=== PATIENT | female | born 1995 | race Caucasian/White ===

== ENCOUNTER 2018-10-22 13:15 | Outpatient (CLI) | payer MEDICAID ==
[~2018-10-22] VITALS: Ht 160 cm; Wt 65.3 kg
[2018-10-22] MEDS ORDERED: FOLI1TAB24 PO (13:33)
[2018-10-22] MEDS ORDERED: ASPI-586 PO (13:33)
[2018-10-22] MEDS ORDERED: PNV1TABL81 PO (13:33)
== END 2018-10-22 13:40 | disposition home or self-care (01) ==
LOC: PREOP 13:15
PROVIDERS: ATTEND Obstetrics & Gynecology
DX: Z01.818 Encounter for other preprocedural examination (principal)

== ENCOUNTER 2018-10-29 04:30 | Inpatient (IN) | payer OTHER, MEDICAID ==
[2018-10-29] VITALS (8 sets, daily range): BP systolic 98–111; BP diastolic 52–93
[~2018-10-29 04:30] MED LIST: ASPI-586 PO; FOLI1TAB24 PO; PNV1TABL81 PO
[2018-10-29] MEDS ORDERED: LACTATED RINGERS 2,000 ML IV ONE (05:08)
[2018-10-29] MEDS ORDERED: METOCLOPRAMIDE INJ 10 MG/2 ML (REGLAN) ONE (05:29)
[2018-10-29] MEDS ORDERED: CITRIC ACID/SOB CIT (BICITRA) 30 ML UDC ONE (05:29)
[2018-10-29] MEDS ORDERED: FAMOTIDINE 20MG/2ML IV (PEPCID) ONE (05:29)
[2018-10-29] MEDS ORDERED: ceFAZolin 2 GM/50 ML NS 50 ML ONE (05:29)
--- NOTE | 2018-10-29 06:30 | NUR ---
NOEMI VALDERRAMA presented to unit via ambulatory from ED, accompanied by s/o, with c/o BREECH PRESENTATION. NOEMI VALDERRAMA weighed, gowned, voided, and to bed. EFHM and TOCO applied, VS taken. NOEMI VALDERRAMA oriented to bed controls, call light, TV, heat, and A/C controls.
[2018-10-29] MEDS ORDERED: ceFAZolin 2 GM IV Premixed 50 ML IV SCH (06:38)
[2018-10-29] MEDS ORDERED: CATHETER FLUSH 10 ML SYR IV PRN (06:45)
[2018-10-29] MEDS ORDERED: CITRIC ACID/SOB CIT (BICITRA) 30 ML UDC PO ONE (06:45)
[2018-10-29] MEDS ORDERED: FAMOTIDINE 20MG/2ML IV (PEPCID) IV ONE (06:45)
[2018-10-29] MEDS ORDERED: METOCLOPRAMIDE INJ 10 MG/2 ML (REGLAN) IV ONE (06:45)
[2018-10-29 07:09] LABS: BASOPHILS % (AUTO) 0 % (0-10); EOSINOPHILS # (AUTO) 0.1 10^3/uL (0.0-0.3); EOSINOPHILS % (AUTO) 1 % (0-10); HEMATOCRIT 37 % (35-52); HEMOGLOBIN 13.3 G/DL (11.5-16.0); LYMPHOCYTES # (AUTO) 2.3 X 10^3 (1.0-4.0); LYMPHOCYTES % (AUTO) 22 % (12-44); MEAN CORPUSCULAR HEMOGLOBIN 33 PG (25-34); MEAN CORPUSCULAR HGB CONC 36 G/DL (32-36); MEAN CORPUSCULAR VOLUME 93 FL (80-99); MEAN PLATELET VOLUME 10.3 FL (7.4-10.4); MONOCYTES # (AUTO) 0.8 X 10^3 (0.0-1.0); MONOCYTES % (AUTO) 8 % (0-12); NEUTROPHILS # (AUTO) 7.1 X 10^3 (1.8-7.8); NEUTROPHILS % (AUTO) 69 % (42-75); PLATELET COUNT 212 10^3/uL (130-400); RED CELL DISTRIBUTION WIDTH 12.7 % (10.0-14.5); WHITE BLOOD COUNT 10.3 10^3/uL (4.3-11.0)
[2018-10-29] MEDS ORDERED: fentaNYL INJECTION 100 MCG/2 ML AMP ONE (07:12)
[2018-10-29] MEDS ORDERED: OXYTOCIN/NORMAL SALINE 1,000 ML IV ONE (07:13)
[2018-10-29] MEDS ORDERED: ROPIVACAINE 5MG/ML 30ML VIAL ONE (07:14)
--- NOTE | 2018-10-29 07:30 | History & Physical-OB/GYN ---
History of Present Illness History of Present Illness Reason for visit/HPI Ms. Donato is here for a scheduled secondary to Breech Presentation Date of Admission October 29, 2018 at 06:21 Date Seen by a Provider: October 29, 2018 Time Seen by a Provider: 07:15 I consulted on this patient on 10/29/18 07:25 Attending Physician Moisés Moreira DO Admitting Physician Moisés Moreira DO Consult Allergies and Home Medications Allergies Coded Allergies: No Known Drug Allergies (Unverified , 10/22/18) Home Medications Aspirin 81 Mg Tablet.dr, 81 MG PO DAILY, (Reported) Folic Acid 1 Mg Tablet, 1 MG PO DAILY, (Reported) Pnv No.122/Iron/Folic Acid 1 Each Tablet, 1 EACH PO DAILY, (Reported) Patient Home Medication List Home Medication List Reviewed: Yes Past Pvsbdml-Pppubw-Rrcxds Hx Patient Social History Marrital Status: Alcohol Use: Denies Use Recreational Drug Use: No Smoking Status: Never a Smoker Physical Abuse Screen: No Sexual Abuse: No Recent Foreign Travel: No Contact w/other who traveled: No Recent Hopitalizations: No Seasonal Allergies Seasonal Allergies: No Surgeries Yes (ACL repair) Respiratory No Cardiovascular No Neurological No Reproductive System Expected Date of Delivery: November 05, 2018 Genitourinary No Gastrointestinal No Musculoskeletal No Endocrine History of Endocrine Disorders: No HEENT History of HEENT Disorders: No Cancer No Psychosocial History of Psychiatric Problem: No Integumentary History of Skin or Integumenta: No Blood Transfusions History of Blood Disorders: No Family Medical History Family Hx: Patient reports no known family medical history. Review of Systems Constitutional: see HPI Physical Exam Physical Exam Vital Signs Capillary Refill : Labs Laboratory Tests 10/29/18 07:00: White Blood Count 10.3, Red Blood Count 4.03L, Hemoglobin 13.3, Hematocrit 37, Mean Corpuscular Volume 93, Mean Corpuscular Hemoglobin 33, Mean Corpuscular Hemoglobin Concent 36, Red Cell Distribution Width 12.7, Platelet Count 212, Mean Platelet Volume 10.3, Neutrophils (%) (Auto) 69, Lymphocytes (%) (Auto) 22, Monocytes (%) (Auto) 8, Eosinophils (%) (Auto) 1, Basophils (%) (Auto) 0, Neutrophils # (Auto) 7.1, Lymphocytes # (Auto) 2.3, Monocytes # (Auto) 0.8, Eosinophils # (Auto) 0.1, Basophils # (Auto) 0.0 General Appearance: No Apparent Distress, WD/WN Respiratory: Chest Non Tender, Lungs Clear, Normal Breath Sounds, Accessory Muscle Use Cardiovascular: Regular Rate, Rhythm, No Murmur Abdominal: normal bowel sounds, non tender, distended (Gravid) Uterus: Enlarged (Gravid) Extremity: Normal Inspection, Normal Range of Motion, Non Tender, No Calf Tenderness Assessment/Plan Assessment and Plan Assessment: Intrauterine at 39 weeks 2. Breech Presentation Plan: Ms. Donato is scheduled for a Primary Low Transverse . The procedure and its associated risks were reviewed. All questions were answered. Admission Diagnosis Intrauterine at 39 weeks 2. Breech Presentation Admission Status: Inpatient Order (span 2 midnights) Reason for Inpatient Admission: Scheduled surgery, Primary Low Transverse Clinical Quality Measures DVT/VTE Risk/Contraindication: Risk Factor Score Per Nursin RFS Level Per Nursing on Admit: 1=Low/No VTE PPMOISÉS DOMINGUEZ DO October 29, 2018 07:30
[2018-10-29] MEDS ORDERED: PHENYLEPHRINE 100 MCG/ML 10 ML (ANESTHESIA) SYR ONE (08:14)
[2018-10-29] MEDS ORDERED: ONDANSETRON 4 MG/2 ML (SDV) Z0FRAN ONE (08:20)
[2018-10-29] MEDS ORDERED: KETOROLAC 30 MG/ML VIAL ONE (08:35)
[2018-10-29] MEDS ORDERED: OXYTOCIN/NORMAL SALINE 500 ML IV SCH (08:52)
--- NOTE | 2018-10-29 08:52 | Operative Report ---
Operative Report Date of Procedure/Surgery October 29, 2018 Surgeon (s) YARY PHILLIPS DO Shot Hole Shooter (s): None Post-Operative Diagnosis Intrauterine at 39 weeks Breech Presentation Procedure Performed Primary Low Transverse Description of Procedure Anesthesia Type: Spinal Estimated blood loss (mL): 500 ml Specimen(s) collected/removed Placenta Description of the Procedure Ms. Donato was taken to the Operating Room with IV fluids running. Once in the OR, Spinal Anesthesia was administered without difficulty. She was then placed in the supine position with a leftward tilt. A West Catheter was inserted, she was then prepped and draped in the normal sterile fashion. A pfannesteil skin incision was made and carried down to the underlying layer of the fascia. The fascia was nicked in the midline and extended laterally. The fascia was elevated and the rectus muscle was dissected off sharply. The rectus muscle was in the midline. The parietal peritoneum was identified, grasped, entered sharply. This incision was extended superiorly and inferiorly with good visualization of the bladder. The vesicouterine peritoneum was identified, entered sharply and extended laterally. The bladder flap was created digitally. The bladder blade was inserted at that time. Utilizing a scalpel, a small incision was made in the lower uterine segment--this incision was extended laterally, manually. The fetus was delivered in standard breech fashion. Once the (female) was delivered, the mouth and nose were suctioned. The cord was doubly clamped and cut with the going immediately to the Pediatric Caregiver where NRP protocol was followed. Cord blood was obtained. The placenta was manually extracted. The uterus was exteriorized and cleared of all clots and debris. The uterine incision was closed with 0-Vicryl in a running locked manner. A second suture of the same type was placed as an imbricating layer. The vesicouterine peritoneum was closed with 3-0 Vicryl. The posterior aspect of the uterus was cleared of all clots and debris. The uterus was then returned to the pelvic cavity. The gutters were cleared of clots and debris. The parietal peritoneum was closed with 3-0 Vicryl. The subcutaneous tissues were approximated with 3-0 Plain Gut. The skin was closed with 4-0 Monocryl in a subcuticular manner. Sponge, needle and instrument counts were correct x 3. Both mom and stable. Mom was taken to the Recovery Room. Findings of the Procedure A healthy viable female weight 6 lbs 2 oz in the breech presentation. 7, 9. 19 inches in length. Allergies and Home Medications Allergies Coded Allergies: No Known Drug Allergies (Unverified , 10/22/18) Home Medications Aspirin 81 Mg Tablet.dr, 81 MG PO DAILY, (Reported) Folic Acid 1 Mg Tablet, 1 MG PO DAILY, (Reported) Pnv No.122/Iron/Folic Acid 1 Each Tablet, 1 EACH PO DAILY, (Reported) Patient Home Medication List Home Medication List Reviewed: Yes YARY PHILLIPS DO October 29, 2018 08:51
[2018-10-29] MEDS ORDERED: BISACODYL 10 MG SUPP (DULCOLAX) PR PRN (09:00)
[2018-10-29] MEDS ORDERED: TETANUS,DIPTH,PERTUSS P/F (BOOSTRIX) 0.5 ML VIAL IM SCH (09:00)
[2018-10-29] MEDS ORDERED: MEASLES,MUMPS,RUBELLA 1 EA INJ SC SCH (09:00)
[2018-10-29] MEDS ORDERED: ONDANSETRON 4 MG/2 ML (SDV) Z0FRAN IVP PRN (09:15)
[2018-10-29] MEDS ORDERED: HYDROmorphone 2 MG/ML VIAL (DILAUDID) IV ONE (09:15)
[2018-10-29] MEDS: KETOROLAC 30 MG/ML VIAL IV SCH ×3 (10:26→21:38)
[2018-10-29] MEDS: DOCUSATE SODIUM 100 MG (COLACE) CAP PO SCH ×2 (10:34→21:38)
[2018-10-29] MEDS: ACETAMINOPHEN 500 MG TAB (TYLENOL) PO SCH ×2 (11:41→18:06)
[2018-10-29] MEDS: METOCLOPRAMIDE 10 MG (REGLAN) TAB PO SCH ×2 (11:41→18:06)
[2018-10-29] MEDS: LACTATED RINGERS 1,000 ML IV PRN ×2 (11:49→21:50)
[2018-10-29] MEDS: CATHETER FLUSH 10 ML SYR IV SCH ×2 (14:00→21:38)
[2018-10-30] VITALS: BP 105/57
[2018-10-30] MEDS: METOCLOPRAMIDE 10 MG (REGLAN) TAB PO SCH ×2 (00:13→06:09)
[2018-10-30] MEDS: ACETAMINOPHEN 500 MG TAB (TYLENOL) PO SCH ×3 (00:13→13:15)
[2018-10-30] MEDS ORDERED: MILK OF MAGNESIA 400 MG/5 ML 30 ML UDC PO PRN (05:00)
[2018-10-30] MEDS: KETOROLAC 30 MG/ML VIAL IV SCH (05:06)
[2018-10-30 05:45] LABS: BASOPHILS % (AUTO) 0 % (0-10); EOSINOPHILS # (AUTO) 0.1 10^3/uL (0.0-0.3); EOSINOPHILS % (AUTO) 1 % (0-10); HEMATOCRIT 38 % (35-52); HEMOGLOBIN 13.2 G/DL (11.5-16.0); LYMPHOCYTES # (AUTO) 1.9 X 10^3 (1.0-4.0); LYMPHOCYTES % (AUTO) 13 % (12-44); MEAN CORPUSCULAR HEMOGLOBIN 33 PG (25-34); MEAN CORPUSCULAR HGB CONC 35 G/DL (32-36); MEAN CORPUSCULAR VOLUME 93 FL (80-99); MEAN PLATELET VOLUME 10.3 FL (7.4-10.4); MONOCYTES # (AUTO) 0.8 X 10^3 (0.0-1.0); MONOCYTES % (AUTO) 5 % (0-12); NEUTROPHILS # (AUTO) 12.1 X 10^3 (1.8-7.8); NEUTROPHILS % (AUTO) 81 % (42-75); PLATELET COUNT 201 10^3/uL (130-400); RED CELL DISTRIBUTION WIDTH 12.5 % (10.0-14.5); WHITE BLOOD COUNT 14.9 10^3/uL (4.3-11.0)
[2018-10-30] MEDS ORDERED: ceFAZolin 2 GM/50 ML NS 50 ML IV ONE (06:38)
--- NOTE | 2018-10-30 07:20 | NUR ---
Dr Moreira here to see pt. Orders rec'd for regular diet, saline lock, and D/C home later today
--- NOTE | 2018-10-30 07:42 | Discharge Summary ---
Diagnosis/Chief Complaint Date of Admission October 29, 2018 at 06:21 Date of Discharge October 30, 2018 Discharge Date: October 30, 2018 Discharge Time: 08:00 Admission Diagnosis Admission Diagnosis Intrauterine at 39 weeks 2. Breech Presentation Discharge Diagnosis Iintrauterine at 39 weeks 2. Breech Presentation Reason Hospital Visit Ms. Donato is here for a scheduled secondary to Breech Presentation Discharge Summary Hospital Course Was the Problem List Reviewed?: Yes Hospital Course Ms. Donato was admitted to the hospital for a scheduled Primary Low Transverse secondary to a Breech Presentation. The surgery was performed without complication. Postoperatively, she was given pain medication via anesthesia. Her day of surgery was uncomplicated. Postoperative Day #1 found Ms. Donato with excellent bowel sounds, tolerating a Regular Diet, ambulating without assist, controlling her pain with oral medications, and voiding freely. She states that she would like to go home. Her vital signs have remained stable throughout her hospitalization. We will discharge her to home with instructions, prescriptions, and a follow up appointment. Labs Laboratory Tests 10/29/18 07:00: Red Blood Count 4.03L 10/30/18 05:30: Red Blood Count 4.05L, White Blood Count 14.9H, Neutrophils (%) (Auto) 81H, Neutrophils # (Auto) 12.1H Procedures None. Discharge Physical Examination Allergies: Coded Allergies: No Known Drug Allergies (Unverified , 10/22/18) Vitals & I&Os Vital Signs Date Time Temp Pulse Resp B/P (MAP) Pulse Ox O2 Delivery O2 Flow Rate FiO2 10/30/18 00:00 98.4 64 16 105/57 (73) 96 Room Air General Appearance: Alert, Oriented X3, Cooperative HEENT: PERRLA, EOMI Respiratory: Clear to Auscultation, Normal Air Movement Cardiovascular: Regular Rate, No Murmurs Abdominal: Normal Bowel Sounds, Soft, Other (Mildly tender) Extremities: No Clubbing, No Cyanosis, No Edema Skin: No Rashes Neuro: Normal Gait, Normal Speech Psych/Mental Status: Mental Status NL Discussion & Recommendations Pelvic rest, no heavy lifting, no strenuous activities. Clean incision 3 x daily. Return to office in one week. Call with problems or questions. Discharge Home Medications Reviewed and agree with Discharge Medication list on patient's Discharge Instruction sheet Condition at Discharge Good and stable Instructions to Patient/Family Please see electronic discharge instructions given to patient. Clinical Quality Measures DVT/VTE Risk/Contraindication: Risk Factor Score Per Nursin RFS Level Per Nursing on Admit: 1=Low/No VTE PPX YARY PHILLIPS DO October 30, 2018 07:42
--- NOTE | 2018-10-30 07:45 | Discharge Inst-Women's Service ---
Discharge Inst-Women's Serv Depart Medication/Instructions New, Converted or Re-Newed RX: RX Given to Pt/Family Instructions Pelvic rest for 6 weeks. No strenuous activities. No heavy lifting. Return to office in one week. Call with problems or questions Final Diagnosis Intrauterine at 39 weeks 2. Breech Presentation Activity Activity: Activity as Tolerated Driving Instructions: No Driving for 1 Week NO SMOKING: NO SMOKING Nothing Inside Vagina: No Douching, No [place], No Tampons Diet Discharge Diet: No Restrictions Symptoms to Report to : Bleeding Excessive, Pain Increased, Fever Over 101 Degrees F, Vaginal Bleeding Increase, Vaginal Discharge Foul Skin/Wound Care Infection Signs and Symptoms: Increased Redness, Foul Odor of Wound, Increased Drainage, Temperature Above 101 F Bathing Instructions: YARY Baron DO October 30, 2018 07:44
[2018-10-30] MEDS ORDERED: DOCU100C37 PO (07:48)
[2018-10-30] MEDS ORDERED: OXC5T PO (07:48)
[2018-10-30] MEDS ORDERED: IBUP-1780 PO (07:48)
[2018-10-30] MEDS ORDERED: ACET-77 PO (07:48)
[2018-10-30] MEDS: DOCUSATE SODIUM 100 MG (COLACE) CAP PO SCH (08:13)
[2018-10-30 08:14] VITALS: BP 110/69
[2018-10-30] MEDS ORDERED: ALL PURPOSE NIPPLE OINTMENT 45 GM JAR TOP SCH (10:45)
--- NOTE | 2018-10-30 12:27 | Anesthesia-Regional Post-Op ---
Regional Patient Condition Mental Status: Alert, Oriented x3 Circulation: Same as Pre-Op Headache: Absent Sensation: Full Recovery Motor Block: Absent Post Op Complications Complications None Follow Up Care/Instructions Patient Instructions None needed. Anesthesia/Patient Condition Patient is doing well, no complaints, stable vital signs, no apparent adverse anesthesia problems. No complications reported per nursing. JASPER MOSELEY CRNA October 30, 2018 12:27
[2018-10-30] MEDS ORDERED: IBUPROFEN 800 MG (MOTRIN) TAB PO ONE (12:59)
--- NOTE | 2018-10-30 13:30 | NUR ---
Discharge instructions explained to pt with copy provided to pt along with prescriptions and vaccine card. Pt aware of follow up appt. Pt verbalizes understanding of teaching and denies questions or concerns. Pt signs to verify.
--- NOTE | 2018-10-30 15:05 | NUR ---
Pt taken off unit via wheelchair accompanied by Mar RN, and to private vehicle with all personal belongings. No s/s of distress noted.
[2018-10-30] MEDS ORDERED: IBUPROFEN 800 MG (MOTRIN) TAB PO SCH (18:00)
== END 2018-10-30 15:05 | disposition home or self-care (01) | DRG 788 ==
LOC: LDRP 06:21
PROVIDERS: ADMIT Obstetrics & Gynecology; ATTEND Obstetrics & Gynecology
PROC: 10D00Z1 Extraction of Products of Conception, Low, Open Approach (ICD-10-PCS; principal; 2018-10-29 07:47)
DX: O32.1XX0 Maternal care for breech presentation, not applicable or unspecified (principal); Z3A.39 39 weeks gestation of pregnancy; Z37.0 Single live birth
CPT/HCPCS: 36415; 85025; 86850; 86900; 86901; 90715

== ENCOUNTER → 2019-12-03 | Outpatient (CLI) | payer OTHER ==
[~2019-12-03] MED LIST changes: +ACET-78 PO; +DOCU100C37 PO; +IBUP-1780 PO; +OXC5T PO
== END ==
LOC: LAB FS 11:52
PROVIDERS: ATTEND Obstetrics & Gynecology
DX: N91.2 Amenorrhea, unspecified (principal)
CPT/HCPCS: 36415; 84702

== ENCOUNTER → 2020-05-19 | Outpatient (CLI) | payer OTHER | LOC: LAB FS 09:00 | PROVIDERS: ATTEND Family Medicine | DX: Z34.90 Encounter for supervision of normal pregnancy, unspecified, unspecified trimester (principal); Z3A.00 Weeks of gestation of pregnancy not specified | CPT/HCPCS: 36415; 82950; 86780 ==

== ENCOUNTER 2020-07-25 06:41 | Inpatient (IN) | payer OTHER, MEDICAID ==
[~2020-07-25] VITALS: Ht 63 cm; Wt 67.2 kg
[2020-07-25] VITALS (12 sets, daily range): BP systolic 106–134; BP diastolic 62–87
[~2020-07-25 06:41] MED LIST changes: -FOLI1TAB24 PO; +FOLI1TAB33 PO
[2020-07-25] MEDS ORDERED: ceFAZolin INJECTION 1,000 MG in WATER (STERILE) FOR INJECTION 10 ML IV ONE (08:15)
[2020-07-25] MEDS ORDERED: CATHETER FLUSH 10 ML SYR IV PRN (08:30)
[2020-07-25] MEDS ORDERED: CITRIC ACID/SOB CIT (BICITRA) 30 ML UDC PO ONE (08:30)
[2020-07-25] MEDS ORDERED: FAMOTIDINE 20MG/2ML IV (PEPCID) IV ONE (08:30)
[2020-07-25] MEDS ORDERED: METOCLOPRAMIDE INJ 10 MG/2 ML (REGLAN) IV ONE (08:30)
[2020-07-25] MEDS ORDERED: LACTATED RINGERS 1,000 ML IV PRN (08:30)
[2020-07-25] MEDS ORDERED: fentaNYL INJECTION 100 MCG/2 ML AMP ONE (08:35)
[2020-07-25] MEDS ORDERED: OXYTOCIN PRE-MIX DRIP 1,000 ML IV ONE (08:35)
[2020-07-25] MEDS ORDERED: OXYTOCIN PRE-MIX DRIP 500 ML IV ONE (08:36)
[2020-07-25] MEDS ORDERED: ROPIVACAINE 5MG/ML 30ML VIAL ONE (08:38)
[2020-07-25] MEDS: LACTATED RINGERS 1,000 ML IV PRN ×2 (08:39→09:11)
[2020-07-25] MEDS ORDERED: ONDANSETRON 4 MG/2 ML (SDV) Z0FRAN ONE (08:47)
[2020-07-25 08:50] LABS: BASOPHILS % (AUTO) 0 % (0-10); EOSINOPHILS % (AUTO) 0 % (0-10); HEMATOCRIT 38 % (35-52); HEMOGLOBIN 12.9 g/dL (11.5-16.0); LYMPHOCYTES # (AUTO) 1.9 10^3/uL (1.0-4.0); LYMPHOCYTES % (AUTO) 18 % (12-44); MEAN CORPUSCULAR HEMOGLOBIN 32 pg (25-34); MEAN CORPUSCULAR HGB CONC 34 g/dL (32-36); MEAN CORPUSCULAR VOLUME 95 fL (80-99); MEAN PLATELET VOLUME 10.7 fL (9.0-12.2); MONOCYTES # (AUTO) 0.6 10^3/uL (0.0-1.0); MONOCYTES % (AUTO) 6 % (0-12); NEUTROPHILS # (AUTO) 7.9 10^3/uL (1.8-7.8); NEUTROPHILS % (AUTO) 75 % (42-75); PLATELET COUNT 216 10^3/uL (130-400); WHITE BLOOD COUNT 10.6 10^3/uL (4.3-11.0)
[2020-07-25] MEDS ORDERED: ONDANSETRON 4 MG/2 ML (SDV) Z0FRAN IVP NR (09:00)
--- NOTE | 2020-07-25 09:13 | History & Physical-OB ---
OB - Chief Complaint & HPI Date/Time Date of Admission: Date of Admission: 07/25/2020 Date seen by a Provider: Jul 25, 2020 Time Seen by a Provider: 08:55 Chief Complaint/History OB-Reason for Admission/Chief: Section Hx : 3 Hx Para: 2 Expected Date of Delivery: Aug 05, 2020 Gestational Age in Weeks: 38 Gestational Age in Days: 3 Indication for : desires repeat , malpresentation Admission Nurse Assessment Rev: Yes History of Labs O pos Antibody neg RI RPR NR HBsAg NR HIV NR GC neg GBS neg Allergies and Home Medications Allergies Coded Allergies: No Known Drug Allergies (Unverified , 10/22/18) Home Medications Folic Acid 1 Mg Tablet, 1 MG PO DAILY, (Reported) Pnv No.122/Iron/Folic Acid 1 Each Tablet, 1 EACH PO DAILY, (Reported) Patient Home Medication List Home Medication List Reviewed: Yes OB - History Hx of Present Care: Yes Ultrasounds: Normal mid trimester US Obstetrical Complications: None Medical Complications: None Obstetrical History Hx : 3 Hx Para: 2 Patient Past Medical History n/a Social History/Family History Alcohol Use: Denies Use Recreational Drug Use: No Immunizations Date of Influenza Vaccine: Mar 24, 2020 OB - Admission Exam Physical Exam Vitals: Vital Signs 07/25/20 06:55 B/P (MAP) 125/87 (100) HEENT: NCAT Heart: Rhythm Normal Lungs: Clear Abdomen: Gravid Extremities: Normal Reflexes: Normal Cervical Dilatation: 2cm Effacement: 50% Station: -2 Membranes: Intact Amniotic Fluid: Clear Heart Rate: 130's Accelerations: Accelerations Present Decelerations: No Decelerations Short Term Variability: Present Intermediate Variability: Average (6-25) Contractions on Admission: < 5 Minutes Apart Intensity: Firm Labs Laboratory Tests Test 07/25/20 08:40 Range/Units OB - Assessment/Plan/Diagnosis Assessment Assessment: active labor, section Admission Dx 25 yo @ 38.3 weeks Previous Breech presentation GBS neg Admission Status: Inpatient Order (span 2 midnights) Reason for Inpatient Admission: Repeat Plan Plan: Section NICANOR WILSON DO Jul 25, 2020 09:13
[2020-07-25] MEDS ORDERED: TETANUS,DIPTH,PERTUSS P/F (BOOSTRIX) 0.5 ML VIAL IM SCH (09:15)
[2020-07-25] MEDS ORDERED: ONDANSETRON 4 MG/2 ML (SDV) Z0FRAN IVP PRN (09:15)
[2020-07-25] MEDS ORDERED: MEASLES,MUMPS,RUBELLA 1 EA INJ SC SCH (09:15)
[2020-07-25] MEDS ORDERED: OXYTOCIN PRE-MIX DRIP 500 ML IV SCH (09:15)
--- NOTE | 2020-07-25 09:17 | Discharge Inst-Women's Service ---
Discharge Inst-Women's Serv Depart Medication/Instructions New, Converted or Re-Newed RX: RX on Chart Final Diagnosis POD 2 RLTCS Problems Reviewed?: Yes Consults/Follow Up Additional Follow Up: Yes Orders/Referrals Dr. Regalado in 7-10 days and in 6 weeks Activity Activity: Activity as Tolerated Driving Instructions: No Driving for 1 Week NO SMOKING: NO SMOKING Nothing Inside Vagina: No Douching, No [place], No Tampons Diet Discharge Diet: No Restrictions Symptoms to Report to : Bleeding Excessive, Pain Increased, Fever Over 101 Degrees F, Vaginal Bleeding Increase, Questions/Concerns For Any Problems or Questions: Contact Your Physician Skin/Wound Care Infection Signs and Symptoms: Increased Redness, Foul Odor of Wound, Increased Drainage, Skin Itchy or Has a Rash, Increased Swelling, Temperature Above 101 F Operative Area Clean and Dry: Keep Incision Clean/Dry Stitches/Jong/Dermabond: Dermabond, Care of Stitches Bathing Instructions: NICANOR Thorpe DO Jul 25, 2020 09:17
[2020-07-25] MEDS ORDERED: DCS100C PO (09:18)
[2020-07-25] MEDS ORDERED: ACHD5005 PO (09:18)
[2020-07-25] MEDS ORDERED: IBUP-844 PO (09:18)
[2020-07-25] MEDS ORDERED: KETOROLAC 30 MG/ML VIAL ONE (09:51)
[2020-07-25] MEDS ORDERED: ASPI-479 PO (13:07)
[2020-07-25] MEDS ORDERED: CATHETER FLUSH 10 ML SYR IV SCH (14:00)
[2020-07-25] MEDS: HYDROcodone/APAP 5 MG/325 MG (LORTAB) TAB PO PRN ×2 (14:14→20:13)
--- NOTE | 2020-07-25 14:43 | OPERATIVE REPORT ---
DATE OF SERVICE: PREOPERATIVE DIAGNOSES: 1. A 25-year-old G3, P2 at 38 weeks and 3 days gestation. 2. Previous section. 3. Breech presentation. POSTOPERATIVE DIAGNOSES: 1. A 25-year-old G3, P2 at 38 weeks and 3 days gestation. 2. Previous section. 3. Breech presentation. PROCEDURE PERFORMED: Repeat low transverse section. SURGEON: Peter Wilson DO. ANESTHESIA: Spinal. ESTIMATED BLOOD LOSS: 500 mL. URINE OUTPUT: 250 mL clear at the end of the procedure. FLUIDS: 1000 mL lactated Ringer's solution. FINDINGS: A live male infant weighing 7 pounds 6 ounces, Apgars of 8 and 9. Grossly normal appearing uterus, bilateral fallopian tubes and ovaries. SPECIMEN SENT: None. INDICATIONS FOR PROCEDURE: This 25-year-old female is a patient, who had sought care in my office. Her care was uncomplicated with the exception of persistent breech presentation. It was again confirmed today when she came in in active labor and bill every 2 to 3 minutes and still in the breech presentation. We discussed with the patient proceeding with repeat and we had reviewed this in the office. After all of her questions were answered, consent was obtained in the preoperative area and the patient was taken to the operating room. OPERATIVE REPORT IN DETAIL: Once in the operating room, spinal analgesia was found to be adequate. She was placed in a supine position with a leftward tilt, prepped and draped in a normal sterile fashion. A timeout was performed and anesthesia was tested. I then made a Pfannenstiel skin incision through the previously existing scar using knife and carried down to the underlying fascia using Bovie cautery. The fascial incision was extended laterally using Bovie cautery. Superior aspect of the fascial incision was then grasped with Marycruz clamps, tented up and dissected off the underlying rectus muscles. The inferior aspect of the fascial incision was then grasped with Marycruz clamps, tented up and dissected off the underlying rectus muscles. The rectus muscles were then dissected down the midline using sharp dissection, which exposed the peritoneum, which I entered bluntly and extended using blunt traction. I identified the lower uterine segment, which was found to be thinned out after I placed an Filipe ring retractor in peritoneal incision, which offers excellent lateral sidewall retraction. I then made a low transverse incision to the vesicouterine peritoneum and bluntly dissected off the lower uterine segment. I proceeded with my myotomy until membranes were visualized, at which point I extended the uterine incision laterally and superiorly using bandage scissors. Amniotomy was then performed using Allis clamp. Clear fluid was noted. The infant was found in the forrest breech presentation. With gentle fundal pressure, the infant's buttocks and hips were elevated up the incision. which were delivered through the incision up to the upper abdomen, lower torso at which point the was rotated to look downward. The arms were then delivered by sweeping them across the chest and then the 's body was elevated and the head was delivered via flexion through the incision. Nares and oropharynx were then bulb suctioned. Nares and oropharynx were then bulb suctioned. The infant was put on the operative field, where the cord was doubly clamped and cut and was handed off to awaiting nurses in attendance. Cord blood was collected, 3-vessel cord with intact placenta was delivered spontaneously thereafter. IV Pitocin was initiated to facilitate uterine contraction. Uterine fundus became firmer by manual massage. Uterus was then exteriorized and cleared of all endometrial clots and debris. I then proceeded with closing the uterine incision using 0 Vicryl suture in a running locked fashion. Second layer of imbricating 0 Monocryl was placed. Excellent hemostasis was noted after doing this. I then placed the uterus back in the pelvis and copiously irrigated the pelvis using normal saline. There was no active bleeding noted from any of my dissection planes. I placed Interceed antiadhesive over my low transverse incision. I then proceeded with closing the peritoneum after I removed the Filipe ring retractor. The peritoneum was reapproximated using 3-0 Vicryl suture in a running fashion. Rectus muscles were reapproximated using 3-0 Vicryl suture in an interrupted fashion. The fascia was reapproximated using 0 Vicryl suture in a running fashion. Subcutaneous tissue was thin; therefore, I just proceeded with closing the skin using 4-0 Monocryl running subcuticular. Dermabond was applied to incision and sterile dressing with adhesive white tape. The patient tolerated the procedure well and was taken to the recovery area in stable condition. Lap and sponge counts were correct at the end of procedure. Instrument counts correct as well. One gram of Ancef was given preoperatively for infection prophylaxis. Job ID: [id number] DocumentID: [id number] Dictated Date: 07/25/2020 10:11:28 Lock Tender Date: 07/25/2020 14:43:41 Dictated By: PETER WILSON DO
[2020-07-25] MEDS: KETOROLAC 30 MG/ML VIAL IV SCH ×2 (16:18→21:53)
[2020-07-25] MEDS: DOCUSATE SODIUM 100 MG (COLACE) CAP PO SCH (20:13)
[2020-07-26] MEDS: HYDROcodone/APAP 5 MG/325 MG (LORTAB) TAB PO PRN ×4 (02:10→21:28)
[2020-07-26] MEDS: KETOROLAC 30 MG/ML VIAL IV SCH (04:19)
[2020-07-26 04:25] VITALS: BP 118/71
[2020-07-26 05:17] LABS: BASOPHILS % (AUTO) 0 % (0-10); EOSINOPHILS # (AUTO) 0.2 10^3/uL (0.0-0.3); EOSINOPHILS % (AUTO) 1 % (0-10); HEMATOCRIT 34 % (35-52); HEMOGLOBIN 11.8 g/dL (11.5-16.0); LYMPHOCYTES % (AUTO) 15 % (12-44); MEAN CORPUSCULAR HEMOGLOBIN 33 pg (25-34); MEAN CORPUSCULAR HGB CONC 35 g/dL (32-36); MEAN CORPUSCULAR VOLUME 95 fL (80-99); MEAN PLATELET VOLUME 10.7 fL (9.0-12.2); MONOCYTES # (AUTO) 0.8 10^3/uL (0.0-1.0); MONOCYTES % (AUTO) 6 % (0-12); NEUTROPHILS # (AUTO) 10.1 10^3/uL (1.8-7.8); NEUTROPHILS % (AUTO) 77 % (42-75); PLATELET COUNT 178 10^3/uL (130-400); WHITE BLOOD COUNT 13.2 10^3/uL (4.3-11.0)
--- NOTE | 2020-07-26 07:34 | Postpartum Progress Note ---
Note Note Day # 1 Subjective: Patient is without complaints. Ambulating, voiding. Tolerating a regular diet without nausea or vomiting. Normal lochia. Pain is well controlled with oral pain medications. Objective: Physical Exam: General - Alert and oriented, no apparent distress Abdomen - Soft, appropriately tender to palpation, non-distended, fundus firm at umbilicus Extremities - no edema, negative Cyndi's bilaterally Incision- c/d/i Assessment: POD 1 RLTCS Plan: Routine care. Encourage breast feeding. Encourage ambulation. Ferrous sulfate supplementation. Plan for discharge Vitals - Labs Vital Signs - I&O Vital Signs Date Time Temp Pulse Resp B/P (MAP) Pulse Ox O2 Delivery O2 Flow Rate FiO2 07/26/20 04:25 36.3 66 18 118/71 (87) 98 07/25/20 21:58 37.0 70 18 122/70 (87) 97 07/25/20 19:00 36.7 65 18 134/62 (86) 97 07/25/20 16:16 37.0 72 18 128/75 (92) 98 Room Air 07/25/20 14:05 37.1 82 16 113/63 (80) Room Air 07/25/20 11:50 36.9 67 16 118/79 (92) 99 Room Air 07/25/20 11:10 36.8 67 16 117/85 (96) 100 Room Air 07/25/20 10:55 Room Air 07/25/20 10:55 36.7 16 122/69 (86) 96 07/25/20 10:40 36.7 16 121/76 (91) 100 Room Air 07/25/20 10:40 Room Air 07/25/20 10:25 36.5 16 106/64 (78) 100 Room Air 07/25/20 10:25 Room Air 07/25/20 10:13 Room Air 07/25/20 10:13 36.2 16 111/74 (86) 100 Room Air I & O 07/26/20 07:00 Intake Total 3010 ml Output Total 2050 ml Balance 960 ml Labs Laboratory Tests 07/25/20 08:40: White Blood Count 10.6, Red Blood Count 3.98, Hemoglobin 12.9, Hematocrit 38, Mean Corpuscular Volume 95, Mean Corpuscular Hemoglobin 32, Mean Corpuscular Hemoglobin Concent 34, Red Cell Distribution Width 12.2, Platelet Count 216, Mean Platelet Volume 10.7, Immature Granulocyte % (Auto) 1, Neutrophils (%) (Auto) 75, Lymphocytes (%) (Auto) 18, Monocytes (%) (Auto) 6, Eosinophils (%) (Auto) 0, Basophils (%) (Auto) 0, Neutrophils # (Auto) 7.9H, Lymphocytes # (Auto) 1.9, Monocytes # (Auto) 0.6, Eosinophils # (Auto) 0.0, Basophils # (Auto) 0.0, Immature Granulocyte # (Auto) 0.1 07/25/20 09:05: Coronavirus (COVID-19)(PCR) Negative 07/26/20 05:07: White Blood Count 13.2H, Red Blood Count 3.60L, Hemoglobin 11.8, Hematocrit 34L, Mean Corpuscular Volume 95, Mean Corpuscular Hemoglobin 33, Mean Corpuscular Hemoglobin Concent 35, Red Cell Distribution Width 12.2, Platelet Count 178, Mean Platelet Volume 10.7, Immature Granulocyte % (Auto) 1, Neutrophils (%) (Auto) 77H, Lymphocytes (%) (Auto) 15, Monocytes (%) (Auto) 6, Eosinophils (%) (Auto) 1, Basophils (%) (Auto) 0, Neutrophils # (Auto) 10.1H, Lymphocytes # (Auto) 2.0, Monocytes # (Auto) 0.8, Eosinophils # (Auto) 0.2, Basophils # (Auto) 0.0, Immature Granulocyte # (Auto) 0.1 NICANOR WILSON DO Jul 26, 2020 07:34
[2020-07-26 08:49] VITALS: BP 112/66
[2020-07-26] MEDS: DOCUSATE SODIUM 100 MG (COLACE) CAP PO SCH ×2 (08:51→21:28)
--- NOTE | 2020-07-26 10:25 | Anesthesia-Regional Post-Op ---
Regional Patient Condition Mental Status: Alert, Oriented x3 Circulation: Same as Pre-Op Headache: Absent Sensation: Full Recovery Motor Block: Absent Post Op Complications Complications None Follow Up Care/Instructions Patient Instructions None needed. Anesthesia/Patient Condition Patient is doing well, no complaints, stable vital signs, no apparent adverse anesthesia problems. No complications reported per nursing. JASPER MOSELEY CRNA Jul 26, 2020 10:25
[2020-07-26] MEDS: IBUPROFEN 600 MG (MOTRIN) TAB PO SCH ×2 (11:07→18:07)
[2020-07-26 14:15] VITALS: BP 117/58
[2020-07-26 21:42] VITALS: BP 114/69
[2020-07-27] MEDS: IBUPROFEN 600 MG (MOTRIN) TAB PO SCH ×3 (00:06→11:44)
[2020-07-27 01:58] VITALS: BP 122/75
--- NOTE | 2020-07-27 07:50 | Postpartum Progress Note ---
Note Note Day # 2 of delivery Subjective: Patient is without complaints. Ambulating, voiding. Tolerating a regular diet without nausea or vomiting. Pain is well controlled with oral pain medications. No concerning vaginal discharge. Objective: Physical Exam: General - Alert and oriented, no apparent distress. Bundled sleeping in her arms. Extremities - no edema, negative Cyndi's bilaterally Assessment: post- day # 2, status post Cesarian section. Recovering well, hemodynamically stable. Plan: Routine care. Encourage breast feeding. Encourage ambulation. repeat CBC Ferrous sulfate supplementation. Plan for discharge Vitals - Labs Vital Signs - I&O Vital Signs Date Time Temp Pulse Resp B/P (MAP) Pulse Ox O2 Delivery O2 Flow Rate FiO2 07/27/20 01:58 36.7 73 18 122/75 (91) Room Air 07/26/20 21:42 36.8 65 18 114/69 (84) 96 Room Air 07/26/20 14:15 37.0 73 18 117/58 (77) 96 Room Air 07/26/20 08:49 37.1 102 18 112/66 (81) 97 Room Air I & O0 07/27/20 07:00 Intake Total 1920 ml Output Total 1175 ml Balance 745 ml JAMIR ZAPATA MED STUDENT Jul 27, 2020 07:50
[2020-07-27 08:10] VITALS: BP 108/63
[2020-07-27] MEDS: DOCUSATE SODIUM 100 MG (COLACE) CAP PO SCH (08:21)
[2020-07-27] MEDS: HYDROcodone/APAP 5 MG/325 MG (LORTAB) TAB PO PRN (11:44)
== END 2020-07-27 11:50 | disposition home or self-care (01) | DRG 788 ==
LOC: WSo 06:41 → LDRP 06:42 → WSo 08:15 → LDRP 11:40
PROVIDERS: ADMIT Obstetrics & Gynecology; ATTEND Obstetrics & Gynecology
PROC: 10D00Z1 Extraction of Products of Conception, Low, Open Approach (ICD-10-PCS; principal; 2020-07-25 09:14)
DX: O34.211 Maternal care for low transverse scar from previous cesarean delivery (principal); Z3A.38 38 weeks gestation of pregnancy; Z37.0 Single live birth; O32.1XX0 Maternal care for breech presentation, not applicable or unspecified; Z20.822 Contact with and (suspected) exposure to COVID-19
CPT/HCPCS: 36415; 85025; 86850; 86900; 86901; 87635

== ENCOUNTER → 2020-10-19 | Outpatient (CLI) | payer OTHER, MEDICAID ==
[~2020-10-19] MED LIST changes: +ACHD5005 PO; +ASPI-479 PO; +DCS100C PO; +IBUP-844 PO
--- NOTE | 2020-10-19 14:38 | Diagnostic Imaging Report ---
INDICATION: Cough. FINDINGS: The lungs are clear. There is no failure pattern, effusion, or pneumothorax. There is some mild reciprocal S type thoracolumbar scoliotic curvature with no acute appearing chest wall pathology. The lungs are hyperexpanded which may be air trapping or an aggressive inspiratory volume. No evidence for bronchiectasis. IMPRESSION: Clear hyperexpanded lungs with reciprocal thoracolumbar scoliotic curvature. No acute appearing abnormality. Dictated by: Dictated on workstation # [id number]
== END ==
LOC: RAD FS 13:55
PROVIDERS: ATTEND Family Medicine
DX: R05 Cough (principal)
CPT/HCPCS: 71046

== ENCOUNTER → 2021-12-12 | Outpatient (CLI) | payer OTHER, MEDICAID ==
[~2021-12-12] MED LIST changes: -DCS100C PO; +DOCU-239 PO
[2021-12-13 06:17] LABS: FREE T4 (FREE THYROXINE) 0.93 NG/DL (0.70-1.48)
== END ==
LOC: LAB FS 16:34
PROVIDERS: ATTEND Family Medicine
DX: E05.90 Thyrotoxicosis, unspecified without thyrotoxic crisis or storm (principal)
CPT/HCPCS: 36415; 84439; 84443